=== PATIENT | male | born 1955 | race Caucasian/White ===

== ENCOUNTER 2016-11-02 07:38 | Inpatient (IN) | payer BC ==
[2016-11-02] MEDS ORDERED: diphenhydrAMINE 25 MG CAP PO ONE ×2 (07:42→08:00)
[2016-11-02] MEDS ORDERED: DIAZEPAM 5 MG TAB PO ONE (07:42)
[2016-11-02] MEDS ORDERED: NS 1,000 ML IV ONE (07:42)
[2016-11-02] MEDS ORDERED: FAMOTIDINE 20 MG TAB PO ONE (07:42)
[2016-11-02] MEDS ORDERED: ASPIRIN EC 325 MG TAB PO ONE ×2 (07:42→08:00)
--- NOTE | 2016-11-02 07:58 | CPEKG ---
Heart Rate: 68 RR Interval: 882 P-R Interval: 160 QRSD Interval: 82 QT Interval: 424 QTC Interval: 451 P [place]: 42 QRS [place]: 19 T Wave [place]: 29 EKG Severity - NORMAL ECG - EKG Impression: SINUS RHYTHM Electronically Signed By: Flynn Dawkins 02-Nov-2016 23:21:56
[2016-11-02] MEDS ORDERED: FAMOTIDINE 20 MG TAB ONE (08:00)
[2016-11-02 08:09] LABS: % IMMATURE GRANULYOCYTES 0.5 % (0.0-1.1); ABSOLUTE IMMATURE GRANULOCYTES 0.03 10^3/uL (0.00-0.10); ADD DIFF? NO; ADD MORPH? NO; ADD SCAN? NO; ATYPICAL LYMPHOCYTE FLAG 0 (0-99); FRAGMENT RBC FLAG 0 (0-99); HEMOGLOBIN 15.1 g/dL (13.7-17.5); LEFT SHIFT FLG 30 (0-99); LIPEMIA HEMOLYSIS FLAG 90 (0-99); MEAN CELL HEMOGLOBIN 31.7 pg (27.9-34.1); MEAN CELL HEMOGLOBIN CONCENTR. 35.1 g/dL (32.4-36.7); MEAN CELL VOLUME 90.3 fL (81.5-99.8); MEAN PLATELET VOLUME 9.8 fL (8.7-11.7); PLATELET CLUMPS FLAG 0 (0-99); PLATELET COUNT 275 10^3/uL (150-400); RED BLOOD CELL COUNT 4.76 10^6/uL (4.40-6.38); RED CELL DISTRIBUTION WIDTH 13.1 % (11.5-15.2)
[2016-11-02 08:27] LABS: INR 0.96 (0.83-1.16); PROTIME(PATIENT) 12.7 SEC (12.0-15.0)
[2016-11-02] MEDS ORDERED: fentaNYL 100 MCG/2 ML INJ ONE (08:29)
[2016-11-02] MEDS ORDERED: MIDAZOLAM 2 MG/2 ML VIAL ONE (08:29)
[2016-11-02] MEDS ORDERED: LIDOCAINE 1% 300 MG/30 ML SDV ONE (08:29)
[2016-11-02] MEDS ORDERED: IOPAMIDOL (ISOVUE-370) 150 ML BTL IV ONE (08:29)
[2016-11-02 08:43] LABS: ANION GAP 12 mEq/L (8-16); CALCIUM 9.6 mg/dL (8.5-10.4); CARBON DIOXIDE 21 mEq/l (22-31); CHLORIDE 109 mEq/L (97-110); CHOLESTEROL 139 mg/dL (140-220); CHOLESTEROL/HDL RATIO 3.66 RATIO (1.00-4.97); GLOMERULAR FILTRATION RATE > 60; GLUCOSE 105 mg/dL (70-100); HIGH DENSITY LIPOPROTEIN 38 mg/dL (40-65); LDL/HDL RATIO 1.29 RATIO (1.00-3.64); LOW DENSITY LIPOPROTEIN 49 mg/dL (80-100); NON-HIGH DENSITY LIPOPROTEIN 101 mg/dL (90-129); POTASSIUM 4.1 mEq/L (3.5-5.2); SODIUM 142 mEq/L (134-144); TRIGLYCERIDE 262 mg/dL (40-150); VERY LOW DENSITY LIPOPROTEINS 52 mg/dL (8-25)
[2016-11-02] MEDS ORDERED: OXYCODONE/APAP 5/325 TAB PO PRN (10:43)
[2016-11-02] MEDS ORDERED: NITROGLYCERIN 0.4 MG BTL SL PRN (10:43)
[2016-11-02] MEDS ORDERED: HYDROCODONE/APAP 5/325 TAB PO PRN (10:43)
[2016-11-02] MEDS ORDERED: ATROPINE SULFATE 1 MG/10 ML SYR IVP PRN (10:43)
--- NOTE | 2016-11-02 11:45 | CPIP ---
[f rep st] INVASIVE CARDIAC PROCEDURE Corrected report DATE OF PROCEDURE: 11/02/2016 INDICATION FOR PROCEDURE: The patient is a 61-year-old gentleman with a positive calcium score of 1900 and strong family history of premature coronary artery disease, who presented to the office on October 24, 2016, for initial consultation. He also had developed complaints of left-sided substernal chest discomfort with radiation down the left arm intermittently. In the setting of a markedly elevated calcium score and chest symptoms radiating to the left arm, decision was made to pursue diagnostic left heart catheterization. PROCEDURE PERFORMED: 1. Left heart catheterization. 2. Left and right coronary angiography. 3. Left ventriculogram. 4. Right common femoral artery angiography. PROCEDURE: After informed consent was obtained, the patient was brought to the cardiac catheterization lab, where he was prepped and draped in a sterile fashion. He received sedation with fentanyl and Versed. Using 1% lidocaine, the right groin was anesthetized. Using a modified Seldinger technique, a 6- Sammarinese catheter was placed in the right common femoral artery without complications. A JL4 catheter was used to cannulate the left main. Images of the left coronary anatomy were obtained in multiple projections. JL4 catheter was exchanged over a guidewire for a JR4 catheter. JR4 catheter was used to take a single image of the right coronary artery. JR4 catheter was exchanged over a guidewire. Angled pigtail catheter was used over a guidewire to cross the aortic valve and into the left ventricle. LVEDP of 15. There was no evidence of aortic valve gradient. LVEF of 60% to 65%. Right common femoral artery angiography demonstrated appropriate placement of catheter above the bifurcation without any visual evidence of trauma. FINDINGS: 1. Left main: There is an essentially absent left main with separate ostia for the LAD and circumflex vessels. 2. LAD: There is evidence of 90% proximal stenosis of the LAD at the bifurcation of first septal senior interaction designer and diagonal branch. There is also 50% stenosis of the distal LAD. The first diagonal is a large vessel that courses in parallel with the LAD. There is 90% to 95% ostial diagonal stenosis. 3. The left circumflex vessel demonstrates 50% proximal stenosis. There is a distal stenosis of 78% of the bifurcation of the circumflex and obtuse marginal branch. There is 70% to 80% stenosis in the obtuse marginal branch distal to the bifurcation, as well as the LAD itself. The circumflex artery is a large caliber, dominant vessel. 4. Right coronary artery is a small nondominant vessel with no evidence of coronary disease. 5. Hemodynamics: LVEF 60% to 65%. LVEDP 15 mmHg. Aortic valve gradient, none. CONCLUSION: 1. Severe 2-vessel coronary artery disease with severe branch vessel disease. 2. Small nondominant right coronary artery. 3. Normal left ventricular function with LVEF of 60% to 65%. 4. LVEDP 15 mmHg. In reviewing these images, in the setting of severe proximal LAD disease with ostial disease in the first large diagonal branch, coupled with disease within the circumflex vessel of significance, coupled with a small nondominant right, I have recommended that he undergo coronary artery bypass graft surgery at this time. I have reviewed these images with my interventional colleague, Dr. Pete, who agrees. PLAN: Will obtain CT Surgery consultation with Dr. Bolanos. /[id number]/MODL Dell worktype, 11/02/16, no MUNSON
[2016-11-02 16:58] LABS: HEMOGLOBIN A1C 5.5 % (4.0-6.0)
[2016-11-02] MEDS ORDERED: CHLORHEXIDINE GLUC HIBICLENS 118 ML BTL TP SCH (21:00)
[2016-11-02] MEDS: traZODone 100 MG TAB PO SCH (21:11)
[2016-11-02] MEDS: MUPIROCIN 2% 22 GM OINT NS SCH (21:12)
[2016-11-03 05:02] LABS: ANION GAP 10 mEq/L (8-16); CALCIUM 9.4 mg/dL (8.5-10.4); CARBON DIOXIDE 23 mEq/l (22-31); CHLORIDE 109 mEq/L (97-110); GLOMERULAR FILTRATION RATE > 60; GLUCOSE 86 mg/dL (70-100); POTASSIUM 4.6 mEq/L (3.5-5.2); SODIUM 142 mEq/L (134-144)
[2016-11-03] MEDS ORDERED: MANNITOL 25% 12.5 GM/50 ML VIAL IV ONE (06:00)
[2016-11-03] MEDS ORDERED: SODIUM BICARBONATE 20 MEQ, LIDOCAINE 1% 10 ML in NORMOSOL-R 1,000 ML MISC ONE (06:00)
[2016-11-03] MEDS ORDERED: AMINOCAPROIC ACID 5 GM/20 ML VIAL IV ONE (06:00)
[2016-11-03] MEDS ORDERED: INSULIN REGULAR HUMAN 100 UNIT in NS 100 ML IV ONE (06:00)
[2016-11-03] MEDS ORDERED: ceFAZolin 2 GM/DEXTROSE 100 ML IV ONE (06:00)
[2016-11-03] MEDS ORDERED: NOREPINEPHRINE BITARTRATE 16 MG in NS 250 ML IV ONE (06:00)
[2016-11-03] MEDS ORDERED: VERAPAMIL 5 MG, NITROGLYCERIN 2.5 MG, HEPARIN 500 UNIT, SODIUM BICARBONATE 0.2 MEQ in L... MISC ONE (06:00)
[2016-11-03] MEDS ORDERED: PHENYLEPHRINE HCL 50 MG in NS 250 ML IV ONE (06:00)
[2016-11-03] MEDS ORDERED: niCARdipine/NACL 200 ML IV ONE (06:00)
[2016-11-03] MEDS ORDERED: CITRATE DEXTROSE SOLN 500 ML BAG MISC ONE (06:00)
[2016-11-03] MEDS ORDERED: PROTAMINE SULFATE 50 MG/5 ML VIAL IVP ONE (06:16)
[2016-11-03] MEDS ORDERED: CALCIUM CHLORIDE 1 GM/10 ML INJ ONE (06:16)
[2016-11-03] MEDS ORDERED: ALBUMIN 5% 250 ML BOTTLE IV ONE (06:16)
[2016-11-03] MEDS ORDERED: MILRINONE/DEXTROSE/100 ML BAG IV ONE (06:16)
[2016-11-03] MEDS ORDERED: DOPamine/DEXTROSE/250 ML BAG IV ONE (06:17)
[2016-11-03] MEDS ORDERED: POTASSIUM Cl (KCl) 20 MEQ/50 ML BAG IV ONE (06:17)
[2016-11-03] MEDS ORDERED: NA BICARBONATE 50 MEQ/50 ML VIAL ONE ×3 (06:17→11:44)
[2016-11-03] MEDS ORDERED: AMIODARONE HCL 150 MG/3 ML VIAL ONE ×2 (06:17→11:28)
[2016-11-03] MEDS ORDERED: LIDOCAINE 2% 100 MG/5 ML SYR ONE (06:17)
[2016-11-03] MEDS ORDERED: ADENOSINE 6 MG/2 ML VIAL ONE ×2 (06:17→11:28)
[2016-11-03] MEDS ORDERED: methylPREDNISolone SOD SUCC 1 GM/8 ML VIAL ONE (06:17)
[2016-11-03] MEDS ORDERED: AMINOCAPROIC ACID 5 GM/20 ML VIAL ONE (06:17)
[2016-11-03] MEDS ORDERED: niCARdipine/NACL/200 ML BAG IV ONE ×3 (06:17→20:52)
[2016-11-03] MEDS ORDERED: MAGNESIUM SULFATE 1 GM/2 ML VIAL ONE (06:17)
[2016-11-03] MEDS ORDERED: CITRATE DEXTROSE SOLN 500 ML BAG ONE (06:17)
[2016-11-03] MEDS ORDERED: HEPARIN 10,000 UNIT/10 ML MDV ONE (06:18)
[2016-11-03] MEDS ORDERED: ceFAZolin 1 GM VIAL ONE (06:18)
[2016-11-03] MEDS ORDERED: MIDAZOLAM 2 MG/2 ML VIAL IVP ONE ×2 (06:45)
[2016-11-03] MEDS ORDERED: LR 1,000 ML IV ONE (06:45)
[2016-11-03] MEDS ORDERED: MINERAL OIL 10 ML VIAL ONE (06:49)
[2016-11-03] MEDS ORDERED: PAPAVERINE HCL 60 MG/2 ML SDV ONE (06:50)
[2016-11-03] MEDS ORDERED: VASOPRESSIN 20 UNIT/ML VIAL ONE (06:50)
[2016-11-03] MEDS ORDERED: VERAPAMIL 5 MG/2 ML VIAL ONE (06:54)
--- NOTE | 2016-11-03 06:56 | PDANEPAE ---
ANE History of Present Illness here for CABG ANE Past Medical History - Cardiovascular History Hx Hypertension: Yes Hx Arrhythmias: No Hx Chest Pain: Yes Hx Coronary Artery / Peripheral Vascular Disease: Yes Hx CHF / Valvular Disease: No Hx Palpitations: No - Pulmonary History Hx COPD: No Hx Asthma/Reactive Airway Disease: No Hx Recent Upper Respiratory Infection: No Hx Oxygen in Use at Home: No Hx Sleep Apnea: No Sleep Apnea Screening Result - Last Documented: Positive - Endocrine History Hx Diabetes: No Hypothyroid: No Hyperthyroid: No Obesity: no - Renal History Hx Renal Disorders: No - Liver History Hx Hepatic Disorders: No - Neurological & Psychiatric Hx Hx Neurological and Psychiatric Disorders: No - Chronic Pain History Chronic Pain: No ANE Review of Systems Review of systems is: negative - Exercise capacity Exercise capacity: >=4 METS ANE Patient History - Allergies Allergies/Adverse Reactions: escitalopram [From Lexapro] Allergy (Verified 11/02/16 15:48) Other-Enter Comments - Home Medications Home medications: home medication list seen and reviewed Home Medications: Aspirin [Aspirin 81mg (*)] 81 mg PO DAILY 11/02/16 [Last Taken 11/02/16 06:00] Atorvastatin Calcium [Lipitor 40 mg (*)] 40 mg PO HS 11/02/16 [Last Taken 21:00] Ibuprofen [Motrin (*)] 200 mg PO DAILY 11/02/16 [Last Taken 11/01/16 21:00] Tamsulosin HCl [Flomax 0.4 MG (*)] 0.4 mg PO DAILY 11/02/16 [Last Taken 06:00] amLODIPine BESYLATE [Norvasc 10 mg (*)] 10 mg PO DAILY 11/02/16 [Last Taken 06:00] traZODone [traZODONE 100MG (*)] 100 - 200 mg PO HS 11/02/16 [Last Taken 21:00] - NPO status NPO Status: no food or drink >8 hours NPO Since - Liquids (Date): 11/02/16 NPO Since - Liquids (Time): 00:00 NPO Since - Solids (Date): 11/02/16 NPO Since - Solids (Time): 00:00 - Smoking Hx Smoking Status: Never smoked ANE Labs/Vital Signs - Labs Result Diagrams: 11/02/16 08:05 11/03/16 04:16 - Vital Signs Blood Pressure: 134/78 Heart Rate: 67 Respiratory Rate: 14 O2 Sat (%): 93 Height: 167.64 cm Weight: 68.3 kg ANE Physical Exam - Airway Neck exam: FROM Mallampati Score: Class 1 Mouth exam: normal dental/mouth exam - Pulmonary Pulmonary: no respiratory distress - Cardiovascular Cardiovascular: regular rate and rhythym - ASA Status ASA Status: IV ANE Anesthesia Plan Anesthesia Plan: general endotracheal anesthesia Lines/Monitors: arterial line, central line, WAYNE
[2016-11-03] MEDS ORDERED: PROPOFOL/EMULSION 500 MG/50 ML BOTTLE IV ONE (06:58)
[2016-11-03] MEDS ORDERED: PHENYLEPHRINE HCL 100 MCG/ML SYR ONE (06:58)
[2016-11-03] MEDS ORDERED: ESMOLOL HCL 100 MG/10 ML VIAL IV ONE (07:02)
[2016-11-03] MEDS ORDERED: fentaNYL 100 MCG/2 ML INJ ONE ×5 (07:10→07:12)
--- NOTE | 2016-11-03 09:08 | GCON ---
[f rep st] CONSULTATION DATE OF CONSULTATION: 11/02/2016 REFERRING PHYSICIAN: Norris Correia MD Patient seen at the request of Dr. Norris Correia, with the patient's permission. IMPRESSION: 1. Severe 3-vessel equivalent coronary artery disease with crescendo angina. 2. Hypertension. 3. Noninsulin-dependent diabetes mellitus. 4. Hyperlipidemia. RECOMMENDATIONS: This gentleman should undergo coronary artery revascularization. The patient agre es to stay and have surgery in the morning. Overall risk is 1% of . Bleeding, infection, and stroke are approximately 2%. Recurrence of disease is requiring interventions approximately 30% at 10 years. Procedure was discussed at length as were the indications and alternatives including medi krish therapy and stenting. CHIEF COMPLAINT: Exertional chest pain. HISTORY OF PRESENT ILLNESS: This gentleman was having substernal chest tightness with radiation to his left arm, and resolving in less than a minute with minimal exertion. He had a calcium score whi ch was 1936. He was referred to Dr. Correia, who performed a diagnostic left heart catheterization, wh ich showed an atretic right coronary artery with significant disease in both LAD and circumflex syst ems. LV function was preserved. MEDICATIONS: Aspirin 81 mg and atorvastatin 40 mg, amlodipine 10 mg, ibuprofen 200 mg, and tamsulos in 0.4 mg. SOCIAL HISTORY: He does not smoke. He is retired from cabinetry. He is accompanied by his . He drinks 3 days a week, sometimes to excess, but has never had alcohol withdrawal symptoms, nor has alcohol been a problem in his social or marital life. OTHER MEDICAL HISTORY: Includes BPH. REVIEW OF SYSTEMS: At the present time, he is comfortable. He denies any significant symptoms. Al l 10 systems were interrogated. FAMILY HISTORY: Strongly positive for coronary disease under age 60 in all male members of his fami ly. ALLERGIES: He denied allergies; however, his chart says he has problems with escitalopram which cau sed him to be shaky. PHYSICAL EXAMINATION: GENERAL: This is a slender, well-developed, middle-aged gentleman, in no raymond arent distress. Blood pressure is 130/96, pulse 82, respirations 14 and nonlabored, O2 saturation w as 97% on room air. HEENT: Normocephalic. YASIR. EOMI. NECK: Without bruit, adenopathy, or thyr omegaly. Heart rate is irregular without murmur. Lungs are clear. ABDOMEN: Soft, nontender. [place] el sounds are active. Rectal and genital exams were deferred. Neurologically, he is grossly intact . Moves all extremities to command. Pedal pulses are 2+ and symmetrical. /[id number]/MODL
[2016-11-03] MEDS ORDERED: epHEDrine SULFATE 10 MG/ML SYR ONE (10:32)
[2016-11-03] MEDS ORDERED: HYDROmorphONE/DILAUDID 2 MG/ML INJ ONE (10:39)
[2016-11-03] MEDS ORDERED: ONDANSETRON DISINTEGRATING 4 MG TAB PO PRN (10:45)
[2016-11-03] MEDS ORDERED: ALBUMIN 5% 250 ML IV PRN (10:45)
[2016-11-03] MEDS ORDERED: NS 1,000 ML IV SCH (10:45)
[2016-11-03] MEDS ORDERED: POLYETHYLENE GLYCOL 3350 17 GM PKT PO PRN (10:45)
[2016-11-03] MEDS ORDERED: MAGNESIUM SULF 2 GM/WATER 50 ML IV ONE (10:45)
[2016-11-03] MEDS ORDERED: LACTULOSE 20 GM/30 ML UDCUP PO PRN (10:45)
[2016-11-03] MEDS ORDERED: ACETAMINOPHEN 650 MG SUPP PR PRN (10:45)
[2016-11-03] MEDS ORDERED: ACETAMINOPHEN 325 MG TAB PO PRN (10:45)
[2016-11-03] MEDS ORDERED: D50W 25 GM/50 ML SYR IVP PRN (10:45)
[2016-11-03] MEDS ORDERED: METOCLOPRAMIDE 10 MG/2 ML VIAL IVP PRN (10:45)
[2016-11-03] MEDS ORDERED: POTASSIUM Cl (KCl) 50 ML IV PRN (10:45)
[2016-11-03] MEDS ORDERED: MAGNESIUM HYDROXIDE 30 ML UDCUP PO PRN (10:45)
[2016-11-03] MEDS ORDERED: SODIUM CL NASAL 45 ML BTL EACHNARE PRN (10:45)
[2016-11-03] MEDS ORDERED: BISACODYL 10 MG SUPP PR PRN (10:45)
[2016-11-03] MEDS ORDERED: CEPACOL LOZENGE PO PRN (10:45)
[2016-11-03] MEDS ORDERED: PANTOPRAZOLE SODIUM 40 MG in NS 100 ML IV ONE (10:45)
[2016-11-03] MEDS ORDERED: MEPERIDINE 25 MG/ML SYR IVP PRN (10:45)
--- NOTE | 2016-11-03 10:56 | POSTOPPROG ---
Post Op Note Date of Operation: 11/03/16 Surgeon: Tesfaye Bolanos Baseball Glove Stuffer: Fred Anesthesiologist: Chance Anesthesia: GET(General Endotracheal) Pre-op Diagnosis: ASHD Procedure: CAB 4 Barboza-Lad,Mary-Dg,SVG-OM2-OM3, Inf/Abcess present in the surg proc area at time of surgery?: No EBL: Minimal Drains: Other (3 blakes)
[2016-11-03] MEDS ORDERED: fentaNYL 50 MCG PATCH TD ONE (11:00)
[2016-11-03] MEDS ORDERED: INSULIN REGULAR HUMAN 100 UNIT in NS 100 ML IV SCH (11:00)
--- NOTE | 2016-11-03 11:21 | CPEKG ---
Heart Rate: 93 RR Interval: 645 P-R Interval: 156 QRSD Interval: 82 QT Interval: 400 QTC Interval: 498 P [place]: 49 QRS [place]: 17 T Wave [place]: 39 EKG Severity - BORDERLINE ECG - EKG Impression: SINUS RHYTHM EKG Impression: PROBABLE LEFT ATRIAL ABNORMALITY EKG Impression: BORDERLINE PROLONGED QT INTERVAL Electronically Signed By: Flynn Dawkins 03-Nov-2016 12:49:30
[2016-11-03] MEDS ORDERED: KETOROLAC 30 MG/1 ML SDV ONE (11:30)
[2016-11-03] MEDS ORDERED: SODIUM BICARBONATE 50 MEQ/50 ML SYR IVP ONE (12:15)
[2016-11-03] MEDS: MUPIROCIN 2% 22 GM OINT NS SCH ×2 (12:28→20:19)
[2016-11-03] MEDS: fentaNYL 100 MCG/2 ML INJ IVP PRN ×2 (12:29→23:11)
--- NOTE | 2016-11-03 13:42 | POSTANESTH ---
Post Anesthetic Evaluation Cardiovascular Status: Normal, Stable Respiratory Status: Normal, Stable Level of Consciousness/Mental Status: Can Participate in Eval Pain Control: Adequate, Prn Tx Ordered Nausea/Vomiting Control: Adequate, Prn Tx Ordered Complications Possibly Related to Anesthesia: None Noted
[2016-11-03] MEDS: ceFAZolin 2 GM/DEXTROSE 100 ML IV SCH ×2 (14:44→21:26)
[2016-11-03] MEDS: traZODone 100 MG TAB PO SCH (20:19)
[2016-11-03 21:02] LABS: HEMATOCRIT 40.5 % (40.0-51.0); HEMOGLOBIN 14.3 g/dL (13.7-17.5); MEAN CELL HEMOGLOBIN 31.8 pg (27.9-34.1); MEAN CELL HEMOGLOBIN CONCENTR. 35.3 g/dL (32.4-36.7); MEAN CELL VOLUME 90.2 fL (81.5-99.8); RED BLOOD CELL COUNT 4.49 10^6/uL (4.40-6.38); RED CELL DISTRIBUTION WIDTH 13.5 % (11.5-15.2)
[2016-11-03] MEDS: METOPROLOL TARTRATE 25 MG TAB PO SCH (21:39)
--- NOTE | 2016-11-03 22:04 | GOP ---
[f rep st] OPERATIVE REPORT DATE OF OPERATION: 11/03/2016 SURGEON: Tesfaye Bolanos DO [facility]ANCIAL [facility] VICE PRESIDENT: Alia Ibarra, PAC. ANESTHESIOLOGIST: Don Fletcher MD. PREOPERATIVE DIAGNOSIS: Arteriosclerotic heart disease, unstable angina. POSTOPERATIVE DIAGNOSIS: Arteriosclerotic heart disease, unstable angina. PROCEDURE PERFORMED: 1. Coronary bypass grafting x4 with left internal mammary artery to the left anterior descending, r ight internal mammary through the transverse sinus to the diagonal, saphenous vein graft to the 2nd OM, sequential 3rd OM. 2. AtriClip to the left atrial appendage. 3. Endoscopic vein harvest. FINDINGS: Patient was noted to have normal LV function with severe 3 vessel equivalent disease. He is consented for surgery. DESCRIPTION OF PROCEDURE: Brought to the operating room, intubated, and monitoring lines were place d. He was prepped and draped in sterile classic manner. Sternotomy was performed. Both mammaries were harvested. They were excellent 2.8 mm vessels with brisk flow. The venous conduit was excelle nt. Aorta was without thickening calcification. He was cannulated and bypass was begun. A cardiop legic arrest was obtained with antegrade cardioplegia, topical hypothermia and systemic cooling. In itially, the posterior descending circ was sequential graft to the posterolateral branch of the circ umflex and brought beneath the cava on the right side of the heart and anastomosed to the ascending aorta. We then proceeded with bringing the right internal mammary artery through the transverse sin us after lateral pericardial incision 2 cm above the phrenic nerve was performed. It had excellent distance and length and was grafted to a 3 mm diagonal without difficulty and tacked to the epicardi um. We then grafted the left internal mammary artery brought through a lateral pericardial incision to the mid LAD. It was a 2.2 mm vessel with diffuse disease. It was tacked to the epicardium. We then placed an AtriClip across the base of the left atrial appendage which was free of thrombus. H e was noted to have a persistent left-sided vena cava incidentally. A cross-clamp was removed with suction of the ascending aortic vent. Spontaneous cardiac activity was noted to resume. Patient wa s rewarmed, removed from bypass. Heparin was reversed with protamine. Cannula was removed and over sewn for two ventricular pacing wires. 2 pleural and 1 mediastinal drain were placed. Thymic fat a nd pericardium were closed. Chest was closed in standard fashion. Patient was returned to ICU in s table condition. /[id number]/MODL
[2016-11-03 22:39] LABS: CALCULATED OXYGEN SATURATION 90 % (92-95)
[2016-11-03 22:39] LABS: CALCULATED OXYGEN SATURATION 90 % (92-95); O2 CONCENTRATIION 15 % (0-100)
[2016-11-04] MEDS: fentaNYL 100 MCG/2 ML INJ IVP PRN ×3 (01:13→06:53)
[2016-11-04 04:48] LABS: ANION GAP 11 mEq/L (8-16); CALCIUM 8.2 mg/dL (8.5-10.4); CARBON DIOXIDE 23 mEq/l (22-31); CHLORIDE 107 mEq/L (97-110); CREATININE 0.9 mg/dL (0.7-1.3); GLOMERULAR FILTRATION RATE > 60; GLUCOSE 95 mg/dL (70-100); SODIUM 141 mEq/L (134-144)
[2016-11-04 05:05] LABS: % IMMATURE GRANULYOCYTES 0.5 % (0.0-1.1); ADD DIFF? NO; ADD MORPH? NO; ADD SCAN? NO; ATYPICAL LYMPHOCYTE FLAG 0 (0-99); FRAGMENT RBC FLAG 0 (0-99); HEMOGLOBIN 13.3 g/dL (13.7-17.5); LEFT SHIFT FLG 60 (0-99); LIPEMIA HEMOLYSIS FLAG 90 (0-99); MEAN CELL HEMOGLOBIN 31.7 pg (27.9-34.1); MEAN CELL HEMOGLOBIN CONCENTR. 34.1 g/dL (32.4-36.7); MEAN CELL VOLUME 93.1 fL (81.5-99.8); MEAN PLATELET VOLUME 10.5 fL (8.7-11.7); PLATELET CLUMPS FLAG 0 (0-99); PLATELET COUNT 260 10^3/uL (150-400); RED BLOOD CELL COUNT 4.19 10^6/uL (4.40-6.38); RED CELL DISTRIBUTION WIDTH 13.7 % (11.5-15.2)
[2016-11-04] MEDS: ceFAZolin 2 GM/DEXTROSE 100 ML IV SCH ×3 (05:20→21:29)
[2016-11-04] MEDS: HEPARIN 5,000 UNIT/0.5 ML SYR SC SCH ×3 (05:21→21:28)
[2016-11-04] MEDS: ONDANSETRON 4 MG/2 ML VIAL IVP PRN ×3 (06:10→19:52)
--- NOTE | 2016-11-04 06:21 | SOAPPROG ---
SOAP Progress Note Assessment/Plan: POD #1: CABGx4 (BLOUNT-LAD, DUDLEY-D1, sequential SVG-OM2-OM3), AtriClip AUBRIE, EVH LLE CAD/unstable angina s/p CABGx4 - Secondary prevention with BB/ASA/statin when appropriate - FC/AL out, tubes to remain to suction d/t +air leak - Transfer to PCU - Hep SQ/SCDs for DVT prophylaxis Acute blood loss anemia - Stable without the need for BP transfusions Subjective: Denies CP/SOB. One episode of clear emesis this morning without associated nausea. Objective: Vital Signs Temp Pulse Resp BP Pulse Ox 36.9 C 88 16 114/71 94 11/04/16 03:00 11/04/16 06:00 11/04/16 06:00 11/04/16 06:00 11/04/16 06:00 Laboratory Results 11/04/16 04:50 11/04/16 04:20 11/03/16 11/04/16 11/05/16 05:59 05:59 05:59 Intake Total 100 1221 Output Total 1210 Balance 100 11 PT 12.7 SEC (12.0-15.0) 11/02/16 08:05 INR 0.96 (0.83-1.16) 11/02/16 08:05 Physical Exam - Physical Exam General Appearance: WD/WN, alert, no apparent distress EENT: No scleral icterus (R), No scleral icterus (L) Neck: normal inspection Respiratory: lungs clear, normal breath sounds, No respiratory distress Cardiac/Chest: regular rate, rhythm Abdomen: non-tender, soft, No distended Skin: normal color, warm/dry Extremities: pedal edema Neuro/Psych: no motor/sensory deficits, alert, normal mood/affect, oriented x 3 ICD10 Worksheet Patient Problems: Problems Problem Status Onset Acute blood loss anemia Acute CAD, multiple vessel Acute ~11/03/16 S/P CABG x 4 Acute
[2016-11-04] MEDS: PANTOPRAZOLE SODIUM 40 MG TAB PO SCH ×2 (06:46→08:56)
[2016-11-04] MEDS ORDERED: traMADol 50 MG TAB PO PRN (07:49)
[2016-11-04] MEDS: METOPROLOL TARTRATE 25 MG TAB PO SCH ×2 (08:56→19:56)
[2016-11-04] MEDS: TAMSULOSIN HCL 0.4 MG CAP PO SCH (08:56)
[2016-11-04] MEDS: ASPIRIN 81 MG CHEWABLE TAB PO SCH (08:56)
[2016-11-04] MEDS: MUPIROCIN 2% 22 GM OINT NS SCH (08:57)
[2016-11-04 09:32] LABS: POTASSIUM 4.8 mEq/L (3.5-5.2)
[2016-11-04] MEDS: HYDROCODONE/APAP 5/325 TAB PO PRN ×3 (11:00→20:13)
[2016-11-04] MEDS ORDERED: diphenhydrAMINE 25 MG CAP PO ONE ×2 (15:35→15:45)
--- NOTE | 2016-11-04 15:46 | GCON ---
[f rep st] CONSULTATION DATE OF CONSULTATION: 11/03/2016 PULMONARY/CRITICAL CARE CONSULTATION REFERRING PROVIDER: Tesfaye Bolanos DO REASON FOR REFERRAL: Evaluation and management of postoperative metabolic acidosis and hyperglycemi a. HISTORY: The patient is a 61-year-old male who developed unstable angina with a known high calcium score. He underwent a diagnostic left heart catheterization, where he was found to have extensive c oronary artery disease. He was referred to Dr. Bolanos, who recommended a surgical coronary artery re vascularization. This was performed this morning, and the patient's intraoperative course was unrem arkable. PAST MEDICAL HISTORY: BPH. MEDICATIONS: At time of admission, include aspirin, atorvastatin, amlodipine, ibuprofen, and tamsul osin. ALLERGIES: None. SOCIAL HISTORY: The patient does not smoke. He has a few drinks a few times a week, but has not schmidt d any history of alcohol withdrawal. FAMILY HISTORY: Positive for coronary artery disease. REVIEW OF SYSTEMS: A 10-point review of systems is unobtainable as the patient was still somewhat s edated from surgery. PHYSICAL EXAMINATION: GENERAL: The patient is sedated but arousable. VITAL SIGNS: His blood pres sure is 96/53 with a heart rate of 99. He is afebrile. Oxygen saturations are 98% on 4 L. HEENT: Normocephalic and atraumatic. No icterus. NECK: No JVD. Trachea is midline. CHEST: He has gilberto e rales in the bases. He has a midline sternotomy scar that is dry. CARDIAC: Regular rate and rhy thm without murmur. ABDOMEN: Soft, nontender. Bowel sounds are present. EXTREMITIES: No clubbin g, cyanosis, or edema. NEURO: The patient is somnolent but arousable. He is able to follow simple commands and moves all extremities symmetrically. LABORATORY: Chemistry group shows a sodium of 145. Glucose is 200, down from 222 a few hours ago. Hemoglobin is 14.3 with a white blood count of 19.5. Arterial blood gas shows a pH of 7.30 with a pO2 of 62, a pCO2 of 37, and a bicarbonate of 18 on mechanical ventilation. A chest x-ray shows gilberto e mild atelectasis. Images reviewed. ASSESSMENT: 1. Coronary artery disease, status post urgent elective coronary artery bypass grafting. The patie nt's intraoperative course was unremarkable. 2. Metabolic acidosis. This patient has a mild metabolic acidosis on his blood gas. He has a norm al anion gap. This could represent some compensation for hyperventilation prior to surgery. There are no other medications or apparent causes to contribute to this. 3. Hyperglycemia. The patient's blood sugars have been elevated. He has been started on an insuli n drip and his blood sugars have started to come down. RECOMMENDATIONS: 1. Repeat arterial blood gas. 2. Continue with sliding scale insulin and close monitoring of the patient's blood sugars. /[id number]/MODL
[2016-11-04] MEDS: SENNOSIDES/DOCUSATE SODIUM TAB PO SCH (19:52)
[2016-11-04] MEDS: traZODone 100 MG TAB PO SCH (21:28)
[2016-11-05] MEDS: HYDROCODONE/APAP 5/325 TAB PO PRN ×4 (00:53→18:21)
[2016-11-05] MEDS: HEPARIN 5,000 UNIT/0.5 ML SYR SC SCH ×3 (05:02→21:47)
[2016-11-05 05:37] LABS: % IMMATURE GRANULYOCYTES 0.9 % (0.0-1.1); ABSOLUTE IMMATURE GRANULOCYTES 0.13 10^3/uL (0.00-0.10); ADD DIFF? NO; ADD MORPH? NO; ADD SCAN? NO; ATYPICAL LYMPHOCYTE FLAG 0 (0-99); FRAGMENT RBC FLAG 0 (0-99); HEMATOCRIT 34.4 % (40.0-51.0); HEMOGLOBIN 11.6 g/dL (13.7-17.5); LEFT SHIFT FLG 30 (0-99); LIPEMIA HEMOLYSIS FLAG 80 (0-99); MEAN CELL HEMOGLOBIN 31.6 pg (27.9-34.1); MEAN CELL HEMOGLOBIN CONCENTR. 33.7 g/dL (32.4-36.7); MEAN CELL VOLUME 93.7 fL (81.5-99.8); MEAN PLATELET VOLUME 10.5 fL (8.7-11.7); PLATELET CLUMPS FLAG 10 (0-99); PLATELET COUNT 237 10^3/uL (150-400); RED BLOOD CELL COUNT 3.67 10^6/uL (4.40-6.38); RED CELL DISTRIBUTION WIDTH 13.6 % (11.5-15.2)
[2016-11-05 05:38] LABS: ANION GAP 6 mEq/L (8-16); CALCIUM 8.2 mg/dL (8.5-10.4); CARBON DIOXIDE 28 mEq/l (22-31); CHLORIDE 102 mEq/L (97-110); GLOMERULAR FILTRATION RATE > 60; GLUCOSE 109 mg/dL (70-100); POTASSIUM 4.6 mEq/L (3.5-5.2); SODIUM 136 mEq/L (134-144)
--- NOTE | 2016-11-05 07:40 | SOAPPROG ---
SOAP Progress Note Assessment/Plan: POD #2: CABGx4 (BL[place]-LAD, DUDLEY-D1, sequential SVG-OM2-OM3), AtriClip AUBRIE, EVH LLE CAD/unstable angina s/p CABGx4 - Secondary prevention with BB/ASA/statin - CTs converted to bulb suction - Hep SQ/SCDs for DVT prophylaxis Acute blood loss anemia - Stable without the need for BP transfusions Subjective: pain well-controlled. Denies N/V. Feels bloated. Objective: Vital Signs Temp Pulse Resp BP Pulse Ox 36.9 C 109 H 18 134/86 H 91 L 11/05/16 04:00 11/05/16 04:00 11/05/16 04:00 11/05/16 04:00 11/05/16 04:00 Laboratory Results 11/05/16 05:15 11/05/16 05:15 11/04/16 11/05/16 11/06/16 05:59 05:59 05:59 Intake Total 1221 60 Output Total 1210 1065 Balance 11 -1005 PT 12.7 SEC (12.0-15.0) 11/02/16 08:05 INR 0.96 (0.83-1.16) 11/02/16 08:05 Physical Exam - Physical Exam General Appearance: WD/WN, alert, no apparent distress EENT: No scleral icterus (R), No scleral icterus (L) Neck: normal inspection Respiratory: No respiratory distress Cardiac/Chest: regular rate, rhythm Abdomen: normal bowel sounds, non-tender, soft Skin: normal color, warm/dry Extremities: pedal edema Neuro/Psych: no motor/sensory deficits, alert, normal mood/affect, oriented x 3 ICD10 Worksheet Patient Problems: Problems Problem Status Onset Acute blood loss anemia Acute CAD, multiple vessel Acute ~11/03/16 Persistent left superior vena cava Acute S/P CABG x 4 Acute
[2016-11-05] MEDS: METOPROLOL TARTRATE 25 MG TAB PO SCH ×2 (08:17→21:49)
[2016-11-05] MEDS: SENNOSIDES/DOCUSATE SODIUM TAB PO SCH ×2 (08:17→21:47)
[2016-11-05] MEDS: PANTOPRAZOLE SODIUM 40 MG TAB PO SCH (08:18)
[2016-11-05] MEDS: TAMSULOSIN HCL 0.4 MG CAP PO SCH (08:18)
[2016-11-05] MEDS: ASPIRIN 81 MG CHEWABLE TAB PO SCH (08:18)
[2016-11-05] MEDS: MUPIROCIN 2% 22 GM OINT NS SCH ×2 (08:19)
[2016-11-05] MEDS ORDERED: FUROSEMIDE 40 MG/4 ML VIAL IVP ONE (09:20)
[2016-11-05] MEDS ORDERED: POTASSIUM CL 20 MEQ TAB PO ONE (09:20)
[2016-11-05] MEDS: ATORVASTATIN CALCIUM 40 MG TAB PO SCH (21:47)
[2016-11-05] MEDS: traZODone 100 MG TAB PO SCH (21:47)
[2016-11-06] MEDS: HYDROCODONE/APAP 5/325 TAB PO PRN ×4 (04:18→22:10)
[2016-11-06] MEDS: HEPARIN 5,000 UNIT/0.5 ML SYR SC SCH ×3 (05:26→20:37)
--- NOTE | 2016-11-06 07:50 | SOAPPROG ---
SOAP Progress Note Assessment/Plan: POD #3: CABGx4 (BL[place]-L[place], DUDLEY-D1, sequential SVG-OM2-OM3), AtriClip AUBRIE, EVH LLE CAD/unstable angina s/p CABGx4 - Secondary prevention with BB/ASA/statin - CTs/wires out - Hep SQ/SCDs for DVT prophylaxis Acute blood loss anemia - Stable without the need for BP transfusions Disposition - Home Monday without services Subjective: Feels well. Pain well-controlled. No SOB. + BM. Objective: Vital Signs Temp Pulse Resp BP Pulse Ox 36.8 C 93 12 121/68 H 93 11/06/16 07:26 11/06/16 07:26 11/06/16 07:26 11/06/16 07:26 11/06/16 07:26 Laboratory Results 11/05/16 05:15 11/05/16 05:15 11/05/16 11/06/16 11/07/16 05:59 05:59 05:59 Intake Total 60 1275 Output Total 1065 2120 Balance -1005 -845 PT 12.7 SEC (12.0-15.0) 11/02/16 08:05 INR 0.96 (0.83-1.16) 11/02/16 08:05 - Pending Discharge Pending Discharge Within 24 Hours: Yes Pending Discharge Date: 11/07/16 Pending Discharge Time: 11:00 ICD10 Worksheet Patient Problems: Problems Problem Status Onset Acute blood loss anemia Acute CAD, multiple vessel Acute ~11/03/16 Persistent left superior vena cava Acute S/P CABG x 4 Acute
[2016-11-06] MEDS: PANTOPRAZOLE SODIUM 40 MG TAB PO SCH (09:16)
[2016-11-06] MEDS: TAMSULOSIN HCL 0.4 MG CAP PO SCH (09:16)
[2016-11-06] MEDS: ASPIRIN 81 MG CHEWABLE TAB PO SCH (09:16)
[2016-11-06] MEDS: METOPROLOL TARTRATE 50 MG TAB PO SCH ×2 (09:17→20:38)
[2016-11-06] MEDS: SENNOSIDES/DOCUSATE SODIUM TAB PO SCH ×2 (09:17→22:11)
[2016-11-06] MEDS ORDERED: POTASSIUM CL 20 MEQ TAB PO ONE (10:04)
[2016-11-06] MEDS ORDERED: FUROSEMIDE 40 MG/4 ML VIAL IVP ONE (10:04)
[2016-11-06] MEDS: ATORVASTATIN CALCIUM 40 MG TAB PO SCH (20:38)
[2016-11-06] MEDS: traZODone 100 MG TAB PO SCH (22:12)
[2016-11-07] MEDS: HEPARIN 5,000 UNIT/0.5 ML SYR SC SCH (04:05)
[2016-11-07] MEDS: HYDROCODONE/APAP 5/325 TAB PO PRN ×2 (04:05→08:25)
[2016-11-07 07:02] VITALS: BP 119/70; PULSE 94; RESP 14; TEMP 98; O2SAT 94
--- NOTE | 2016-11-07 07:34 | SOAPPROG ---
SOAP Progress Note Assessment/Plan: POD #4: CABGx4 (BL[place]-L[place], DUDLEY-D1, sequential SVG-OM2-OM3), AtriClip AUBRIE, EVH LLE CAD/unstable angina s/p CABGx4 - Secondary prevention with BB/ASA/statin Acute blood loss anemia - Stable without the need for BP transfusions Disposition - Home today without services Subjective: No complaints. Feels ready to get home. Objective: Vital Signs Temp Pulse Resp BP Pulse Ox 36.7 C 94 14 119/70 94 11/07/16 06:59 11/07/16 06:59 11/07/16 06:59 11/07/16 06:59 11/07/16 06:59 Laboratory Results 11/05/16 05:15 11/05/16 05:15 11/06/16 11/07/16 11/08/16 05:59 05:59 05:59 Intake Total 1275 1020 Output Total 2120 1950 Balance -845 -930 PT 12.7 SEC (12.0-15.0) 11/02/16 08:05 INR 0.96 (0.83-1.16) 11/02/16 08:05 Physical Exam - Physical Exam General Appearance: WD/WN, alert, no apparent distress EENT: No scleral icterus (R), No scleral icterus (L) Neck: normal inspection Respiratory: No respiratory distress Cardiac/Chest: regular rate, rhythm Abdomen: non-tender, soft, No distended Skin: normal color, warm/dry Extremities: No pedal edema Neuro/Psych: no motor/sensory deficits, alert, normal mood/affect, oriented x 3 ICD10 Worksheet Patient Problems: Problems Problem Status Onset Acute blood loss anemia Acute CAD, multiple vessel Acute ~11/03/16 Persistent left superior vena cava Acute S/P CABG x 4 Acute
[2016-11-07] MEDS: METOPROLOL TARTRATE 50 MG TAB PO SCH (08:21)
[2016-11-07] MEDS: TAMSULOSIN HCL 0.4 MG CAP PO SCH (08:21)
[2016-11-07] MEDS: SENNOSIDES/DOCUSATE SODIUM TAB PO SCH (08:22)
[2016-11-07] MEDS: ASPIRIN 81 MG CHEWABLE TAB PO SCH (08:22)
[2016-11-07] MEDS: PANTOPRAZOLE SODIUM 40 MG TAB PO SCH (08:22)
--- NOTE | 2016-11-07 10:15 | PDDCSUM ---
Discharge Summary Discharge Summary: ADMISSION DATE: 11/02/16 DISCHARGE DATE: 11/07/16 ADMISSION DX: 1. Unstable angina 2. Coronary artery disease DISCHARGE DX: 1. Unstable angina 2. Coronary artery disease PROCEDURES 11/03/16, Tesfaye Bolanos: 1. CABGx4 (BLOUNT-LAD, DUDLEY-D1, sequential OM2-OM3), EVH left leg HOSPITAL COURSE BY PROBLEM LIST 1. Unstable angina with CAD - well-tolerated post-operative course. Beta-melody , aspirin, and statin prescribed. CONDITION Good DISPOSITION Home, self-care ACTIVITY Pt was instructed on sternal precautions, activity limitations, and which problems to call [facility] with. Please see Discharge Plan in chart for specifics. D/C MEDICATIONS New 1. Acetaminophen [Tylenol 325mg (*)] 325 - 650 mg PO Q4HRS PRN 2. Hydrocodone/APAP 5/325 [[place] 5/325 (*)] 1 - 2 tab PO Q4HRS PRN 3. Metoprolol Tartrate [Lopressor 50 mg (*)] 50 mg PO BID Continue: 1. Aspirin [Aspirin 81mg (*)] 81 mg PO DAILY 2. Atorvastatin Calcium [Lipitor 40 mg (*)] 40 mg PO HS 3. Tamsulosin HCl [Flomax 0.4 MG (*)] 0.4 mg PO DAILY 4. traZODone [traZODONE 100MG (*)] 100 - 200 mg PO HS Discontinue: 1. Amlodipine 2. Ibuprofen PENDING STUDIES/LABS 1. CXR prior to surgical follow-up F/U APPOINTMENTS 1. Tesfaye Bolanos - 11/15/16, 9:00 AM
== END 2016-11-07 11:52 | disposition home or self-care (01) | DRG 234 ==
LOC: FCATH 07:38 → F2W 13:56 → F2N 11-03 08:32 → F2W 11-04 09:40
PROVIDERS: ADMIT Thoracic Surgery (Cardiothoracic Vascular Surgery); ATTEND Internal Medicine Cardiovascular Disease
DX: I25.110 Atherosclerotic heart disease of native coronary artery with unstable angina pectoris (principal); E87.2 Acidosis; E78.5 Hyperlipidemia, unspecified; I10 Essential (primary) hypertension; R07.89 Other chest pain; E11.65 Type 2 diabetes mellitus with hyperglycemia; N40.0 Benign prostatic hyperplasia without lower urinary tract symptoms
CPT/HCPCS: 82947-QW; 97161-GP; 97165-GO; 97530-GO; 97530-GP; 97535-GO; C1760; J0153; J0282; J0690; J1170; J1265; J1644; J1815; J1885; J1940; J2001; J2150; J2250; J2260; J2370; J2405; J2440; J2704; J2720; J2765; J2930; J3010; J7060; P9041; Q9967

== ENCOUNTER → 2016-11-15 | Outpatient (CLI) | payer BC | LOC: FIMAGING 08:19 | PROVIDERS: ATTEND Physician Assistant | DX: J90 Pleural effusion, not elsewhere classified (principal); J98.11 Atelectasis; R09.02 Hypoxemia; Z98.890 Other specified postprocedural states ==

== ENCOUNTER → 2016-11-29 | Outpatient (CLI) | payer BC | LOC: FIMAGING 09:02 | PROVIDERS: ATTEND Thoracic Surgery (Cardiothoracic Vascular Surgery) | DX: Z09 Encounter for follow-up examination after completed treatment for conditions other than malignant neoplasm (principal); Z98.890 Other specified postprocedural states; Z95.1 Presence of aortocoronary bypass graft; J90 Pleural effusion, not elsewhere classified ==